=== PATIENT | female | born 1985 | race Caucasian/White ===

== ENCOUNTER 2017-02-22 01:40 | Emergency (ER) | payer MEDICAID, OTHER ==
[2017-02-22 01:40] VITALS: BMI 26.6
[2017-02-22] MEDS ORDERED: Tetanus/Diphtheria Toxoids 0.5 ml Syringe IM ONE ×2 (02:16→02:26)
[2017-02-22] MEDS ORDERED: Lidocaine 1% Inj (20ml) ONE (02:31)
[2017-02-22] MEDS ORDERED: Bacitracin 500 Units/gm Oint Foilpak UD ONE (04:17)
--- NOTE | 2017-02-22 04:19 | C.PDOC ---
History Of Present Illness 31 year old female presents to the ED with complaints of left great toe nail loss after stubbing toe nail during a BBQ just prior to arrival. She notes a history of left great toe nail disease. Patient states last tetanus is unknown and denies any other complaints at this time. Time Seen by Provider: 02/22/17 01:55 Chief Complaint (Nursing): Lower Extremity Problem/Injury History Per: Patient History/Exam Limitations: no limitations Onset/Duration Of Symptoms: Hrs Current Symptoms Are (Timing): Still Present Recent travel outside of the [place]: No - Ankle/Foot Description Of Injury: Other (stubbed left great toe ) Past Medical History Reviewed: Historical Data, Nursing Documentation, Vital Signs Vital Signs: Last Vital Signs Temp 98.0 F 02/22/17 04:30 Pulse 82 02/22/17 04:30 Resp 16 02/22/17 04:30 BP 121/84 02/22/17 04:30 Pulse Ox 98 02/22/17 06:29 Family History: States: Unknown Family Hx - Social History Hx Tobacco Use: No Hx Alcohol Use: No Hx Substance Use: No Review Of Systems Constitutional: Negative for: Fever, Chills Cardiovascular: Negative for: Chest Pain Respiratory: Negative for: Shortness of Breath Gastrointestinal: Negative for: Nausea, Vomiting, Abdominal Pain, Diarrhea Musculoskeletal: Positive for: Foot Pain (left great toe pain ) Neurological: Negative for: Weakness, Numbness Physical Exam - Physical Exam Appears: Non-toxic, No Acute Distress Skin: Warm, Dry Head: Atraumatic Eye(s): bilateral: Normal Inspection, PERRL, EOMI Oral Mucosa: Moist Neck: Supple Chest: Symmetrical, No Deformity Cardiovascular: Rhythm Regular Respiratory: Normal Breath Sounds, No Wheezing Extremity: Normal ROM, No Tenderness (no bony tenderness of the left great toe ) , No Swelling, Other (Partial avulsion of the left great toe nail, minimal bleeding. Toe nail has acrlyic tip on hardened, damaged nail. ) Pulses: Left Dorsalis Pedis: Normal, Right Dorsalis Pedis: Normal Neurological/Psych: Oriented x3, Normal Speech, Normal Cognition, Normal Cranial Nerves, Normal Motor, Normal Sensation Gait: Steady ED Course And Treatment - Laboratory Results Lab Interpretation: Normal O2 Sat by Pulse Oximetry: 98 (room air ) Pulse Ox Interpretation: Normal Progress Note: Patient was unable to tolerate manipulation of left great toe nail despite moderate amount of lidocaine used. Patient does not want to repair the nail. Bacitracin dressing was applied and patient instructed to follow up with measurer. Procedure: Blank - Time Time Performed: 05:30 - Procedure Procedure:: Digit block - Consent obtained: Consent obtained: Verbal - Performed by: Performed by:: Mid-level provider - Topical: Local/Regional Anesthetic:: Lidocaine 1% - Location Location: Left Toe:: 1 - Result Result: Other (Patient did not tolerate procedure well. Bacitracin dressing was applied to nail.) Disposition Counseled Patient/Family Regarding: Diagnosis, Need For Followup, Rx Given - Disposition Referrals: Podiatry Clinic [Outside] Disposition: HOME/ ROUTINE Disposition Time: 04:17 Condition: STABLE Additional Instructions: Please follow up with Podiatry Tylenol or advil for pain Apply bacitracin to area Return to ER if worse Instructions: Nail Avulsion (ED) Forms: [facility] (Armenian), Work Excuse - Clinical Impression Clinical Impression: Avulsion of toenail of left foot - Scribe Statement The provider has reviewed the documentation as recorded by the Scribmaria dolores Stanley All medical record entries made by the Scribe were at my direction and personally dictated by me. I have reviewed the chart and agree that the record accurately reflects my personal performance of the history, physical exam, medical decision making, and the department course for this patient. I have also personally directed, reviewed, and agree with the discharge instructions and disposition.
[2017-02-22 04:31] VITALS: BP 121/84; PULSE 82; RESP 16; TEMP 98
[2017-02-22 05:56] VITALS: O2SAT 98
== END 2017-02-22 04:30 | disposition home or self-care (01) ==
LOC: C.ER 01:40
DX: S91.202A Unspecified open wound of left great toe with damage to nail, initial encounter (principal); W22.8XXA Striking against or struck by other objects, initial encounter; Y93.89 Activity, other specified; Y92.007 Garden or yard of unspecified non-institutional (private) residence as the place of occurrence of the external cause